=== PATIENT | female | born 1950 | race Caucasian/White ===

== ENCOUNTER 2017-07-09 14:23 | Emergency (ER) | payer MEDICARE, OTHER ==
--- NOTE | 2017-07-09 16:58 | ED ---
Throat Pain/Nasal Congestion - HPI Summary HPI Summary: 66 yr old female with two days total of illness. She arrived from [place] to visit a relative undergoing cancer here in [place], yesterday she began to get runny nose, post nasal drip, and coughing and fatigue. She states she has a scant amount of yellow sputum. She denies CP, SOB. She has not had any abdominal pain, or urinary symptoms. She states her hematology profiles with chemo have always been good with no dips in white count. She had her last chemo for stage 4 lung cancer on Wednesday of this week. She states she has been taking her temperature orally and the Tmax the past two days has been 100 F. She has not been light headed, dizzy, or felt like she would pass out. She has just felt some fatigue. - History of Current Complaint Chief Complaint: UCRespiratory Time Seen by Provider: 07/09/17 16:42 - Allergies/Home Medications Allergies/Adverse Reactions: Allergies Allergy/AdvReac Type Severity Reaction Status Date / Time Lisinopril Allergy Coughing Verified 07/09/17 14:52 Sulfa Antibiotics Allergy Swelling Verified 07/09/17 14:51 Home Medications: Home Medications Calcium Carbonate-Vitamin D [Calcium 600 + D 600-400 mg-Unit] 1 tab PO DAILY [History Confirmed 07/09/17] Cyanocobalamin TAB* [Vitamin B12 TAB*] 500 mcg PO DAILY 07/09/17 [History Confirmed 07/09/17] Dexamethasone TAB* [Decadron TAB*] 4 mg PO BID PRN 07/09/17 [History Confirmed 07/09/17] Diazepam TAB(*) [Valium TAB(*)] 10 mg PO Q6H PRN 07/09/17 [History Confirmed ] Estradiol VAGINAL TAB(NF) [Vagifem] 10 mcg VAGINAL SEE INSTRUCTIONS 07/09/17 [ History Confirmed 07/09/17] Estradiol Vaginal [Estrace] 0.1 mg VAGINAL DAILY PRN 07/09/17 [History Confirmed 07/09/17] Hydrochlorothiazide TAB* [Hydrodiuril TAB*] 25 mg PO DAILY 07/09/17 [History Confirmed 07/09/17] Lactobacillus Bifidus [Tagiq-[id number]] 1 cap PO DAILY 07/09/17 [History Confirmed 07/09/17] Loratadine [Claritin 10 MG CAP] 10 mg PO DAILY 07/09/17 [History Confirmed 07/09] Multiple Vitamins W/ Minerals [Multivitamin Womens] 1 tab PO DAILY 07/09/17 [ History Confirmed 07/09/17] Freedom-3 Fatty Acids [Alp High3 600 mg] 1 cap PO DAILY 07/09/17 [History Confirmed 07/09/17] Omeprazole CAP* [Prilosec CAP* 20 MG] 20 mg PO DAILY 07/09/17 [History Confirmed 07/09/17] Ondansetron TAB* [Zofran 4 MG Tab*] 4 mg PO DAILY 07/09/17 [History Confirmed ] Pramipexole TAB* [Mirapex TAB*] 0.5 mg PO BID 07/09/17 [History Confirmed ] Prochlorperazine TAB* [Compazine Tab*] 10 mg PO DAILY 07/09/17 [History Confirmed 07/09/17] amLODIPine TAB* [Norvasc 5 mg TAB*] 5 mg PO DAILY 07/09/17 [History Confirmed ] busPIRone TAB* [Buspar TAB *] 15 mg PO BID 07/09/17 [History Confirmed 07/09/17] PMH/Surg Hx/FS Hx/Imm Hx - Cancer History Cancer Type, Location and Year: Lung, Spleen and L1 stage 4 - Surgical History Surgery Procedure, Year, and Place: [place]. Left lung Infectious Disease History: No Infectious Disease History: Denies: Traveled Outside the [place] in Last 30 Days - Family History Known Family History: Positive: Other - cancer - Social History Alcohol Use: Occasionally Substance Use Type: Reports: None Smoking Status (MU): Former Smoker Review of Systems Positive: Chills, Fatigue Positive: Sore Throat, Nasal Discharge. Negative: Ear Ache Negative: Palpitations, Chest Pain Positive: Cough Negative: Abdominal Pain Negative: burning, dysuria Negative: Rash Negative: Headache All Other Systems Reviewed And Are Negative: Yes Physical Exam Triage Information Reviewed: Yes Vital Signs On Initial Exam: Initial Vitals Temp Pulse Resp BP Pulse Ox 99.2 F 86 12 124/81 99 07/09/17 14:46 07/09/17 14:46 07/09/17 14:46 07/09/17 14:46 07/09/17 14:46 Vital Signs Reviewed: Yes Appearance: Positive: Well-Appearing, No Pain Distress, Well-Nourished Skin: Positive: Warm, Skin Color Reflects Adequate Perfusion Head/Face: Positive: Normal Head/Face Inspection Eyes: Positive: EOMI ENT: Positive: TMs normal Neck: Positive: Supple, Nontender Respiratory/Lung Sounds: Positive: Clear to Auscultation, Breath Sounds Present Cardiovascular: Positive: Normal, RRR. Negative: Murmur Abdomen Description: Positive: Nontender Musculoskeletal: Positive: Normal, Strength/ROM Intact Neurological: Positive: Sensory/Motor Intact, Alert, Oriented to Person Place, Time, CN Intact II-III Psychiatric: Positive: Normal Diagnostics - Vital Signs Vital Signs Temp Pulse Resp BP Pulse Ox 07/09/17 14:46 99.2 F 86 12 124/81 99 - Laboratory Lab Statement: Any lab studies that have been ordered have been reviewed, and results considered in the medical decision making process. EENT Course/Dx - Diagnoses Provider Diagnoses: Sinusitis, Acute bronchitis Discharge - Discharge Plan Condition: Good Disposition: HOME Prescriptions: Azithromycin TAB* [Zithromax TAB (Z-NATHANAEL) 250 mg #6 tabs] 2 tab PO .TODAY, THEN 1 DAILY #1 nathanael Patient Education Materials: Sinusitis (ED), Acute Bronchitis (ED) Referrals: [facility] PHYSICIAN REFERRAL [Outside] No Primary Care Phys,NOPCP [Primary Care Provider] -
[2017-07-09 17:01] VITALS: BP 160/73
--- NOTE | 2017-07-09 17:18 | RAD ---
HISTORY: Cough and congestion COMPARISONS: None VIEWS: 4: Frontal dual-energy and lateral views of the chest. FINDINGS: CARDIOMEDIASTINAL SILHOUETTE: The cardiomediastinal silhouette is normal. CAMDEN: The camden are normal. PLEURA: The costophrenic angles are sharp. No pleural abnormalities are noted. LUNG PARENCHYMA: The lungs are clear. ABDOMEN: The upper abdomen is clear. There is no subphrenic gas. BONES AND SOFT TISSUES: There is remote post traumatic change of the left hemithorax. OTHER: None. IMPRESSION: NO ACTIVE CARDIOPULMONARY DISEASE.
== END 2017-07-09 17:41 | disposition home or self-care (01) ==
LOC: UCEAST 14:23
DX: J32.9 Chronic sinusitis, unspecified (principal); J20.9 Acute bronchitis, unspecified; C34.90 Malignant neoplasm of unspecified part of unspecified bronchus or lung; Z88.2 Allergy status to sulfonamides
CPT/HCPCS: 71020; 99202; G0463